=== PATIENT | female | born 1950 | race Caucasian/White ===

== ENCOUNTER → 2018-09-29 | Outpatient (CLI) | payer OTHER | END | disposition home or self-care (01) | LOC: RAH 16:56 | PROVIDERS: ATTEND Internal Medicine | DX: M25.551 Pain in right hip (principal) | CPT/HCPCS: 73502 ==

== ENCOUNTER → 2018-11-15 | Outpatient (CLI) | payer OTHER | END | disposition home or self-care (01) | LOC: RAH 14:19 | PROVIDERS: ATTEND Internal Medicine | DX: Z12.31 Encounter for screening mammogram for malignant neoplasm of breast (principal) | CPT/HCPCS: 77067 ==

== ENCOUNTER → 2019-08-09 | Outpatient (CLI) | payer OTHER | END | disposition home or self-care (01) | LOC: RAH 15:23 | PROVIDERS: ATTEND Pain Medicine Interventional Pain Medicine | DX: M47.22 Other spondylosis with radiculopathy, cervical region (principal); M48.02 Spinal stenosis, cervical region | CPT/HCPCS: 72040 ==

== ENCOUNTER 2019-08-19 15:52 | Observation (INO) | payer OTHER ==
[~2019-08-19] VITALS: Ht 160 cm; Wt 95.8 kg
[2019-08-19] MEDS ORDERED: ONDANSETRON HCL 4 MG/2 ML VIAL ONE (16:53)
[2019-08-19 17:01] LABS: BASOPHILS % (AUTO) 0.5 % (0.0-5.0); EOSINOPHILS % (AUTO) 1.8 % (0.0-8.0); HEMATOCRIT 43.6 % (36-48); LYMPHOCYTES % (AUTO) 21.2 % (21.0-51.0); MEAN CORPUSCULAR HEMOGLOBIN 28.8 pg (27.0-33.0); MEAN CORPUSCULAR HGB CONC 31.9 g/dL (32.0-36.0); MEAN CORPUSCULAR VOLUME 90.3 fL (79-99); MONOCYTES % (AUTO) 5.8 % (3.0-13.0); NEUTROPHILS % (AUTO) 70.4 % (40.0-77.0); PLATELET COUNT (AUTO) 238 K/uL (130-400); RED BLOOD CELL COUNT(AUTO) 4.83 MIL/uL (4.00-5.50); WHITE BLOOD COUNT (AUTO) 7.8 K/uL (4.8-10.8)
[2019-08-19 17:20] LABS: POTASSIUM 3.8 mmol/L (3.5-5.1)
[2019-08-19 17:24] LABS: ALBUMIN 3.4 g/dL (3.5-5.0); BILIRUBIN,TOTAL 0.6 mg/dL (0.2-1.0); TOTAL PROTEIN, SERUM 7.7 g/dL (6.0-8.3)
[2019-08-19 17:47] LABS: APPEARANCE,URINE Clear (CLEAR); BILIRUBIN,URINE Negative (NEGATIVE); COLOR,URINE Yellow (YELLOW); GLUCOSE, URINE (UA) Negative (NEGATIVE); KETONES,URINE Negative (NEGATIVE); LEUKOCYTE ESTERASE ,URINE Negative (NEGATIVE); NITRATE,URINE Negative (NEGATIVE); OCCULT BLOOD,URINE Negative (NEGATIVE); PROTEIN,URINE Negative (NEGATIVE)
[2019-08-19] MEDS ORDERED: SODIUM CHLORIDE 0.9% 1000ML 1,000 ML IV ONE ×2 (17:48→22:46)
[2019-08-19] MEDS ORDERED: IOHEXOL-350 75 ML VIAL IV ONE (18:06)
[2019-08-19] MEDS ORDERED: DEXTROSE 50%-WATER 50 ML DISP.SYRIN IV PRN (21:30)
[2019-08-19] MEDS ORDERED: MORPHINE SULFATE 2 MG/ML 1ML SYG IVP PRN (21:30)
[2019-08-19] MEDS ORDERED: GLUCAGON 1MG KIT 1 MG ML IM PRN (21:30)
[2019-08-19 23:05] VITALS: BP 168/90
[2019-08-20] MEDS: SODIUM CHLORIDE 0.9% 1000ML 1,000 ML IV SCH ×3 (00:46→21:01)
[2019-08-20] MEDS: ONDANSETRON HCL 4 MG/2 ML VIAL IV PRN ×3 (00:46→22:10)
[2019-08-20 03:19] VITALS: BP 109/66
[2019-08-20 05:36] LABS: BASOPHILS % (AUTO) 0.3 % (0.0-5.0); EOSINOPHILS % (AUTO) 2.3 % (0.0-8.0); HEMATOCRIT 37.9 % (36-48); LYMPHOCYTES % (AUTO) 29.8 % (21.0-51.0); MEAN CORPUSCULAR HEMOGLOBIN 28.5 pg (27.0-33.0); MEAN CORPUSCULAR HGB CONC 31.4 g/dL (32.0-36.0); MEAN CORPUSCULAR VOLUME 90.9 fL (79-99); MONOCYTES % (AUTO) 7.4 % (3.0-13.0); NEUTROPHILS % (AUTO) 60.1 % (40.0-77.0); PLATELET COUNT (AUTO) 200 K/uL (130-400); RED BLOOD CELL COUNT(AUTO) 4.17 MIL/uL (4.00-5.50); RED CELL DISTRIBUTION WIDTH 14.9 % (11.0-15.5); WHITE BLOOD COUNT (AUTO) 6.9 K/uL (4.8-10.8)
[2019-08-20 05:38] LABS: HEMOGLOBIN A1C 7.5 % (4.0-6.0)
[2019-08-20 05:46] LABS: CREATININE 1.1 mg/dL (0.5-1.5); POTASSIUM 3.9 mmol/L (3.5-5.1)
[2019-08-20] MEDS: INSULIN HUMULIN R 100 UNIT/ML 3ML SQ SCH ×5 (05:46→20:25)
[2019-08-20] MEDS ORDERED: BACL5TAB PO (06:59)
[2019-08-20] MEDS ORDERED: INSU10VI3 SQ ×2 (06:59)
[2019-08-20] MEDS ORDERED: CETI10TA57 PO (06:59)
[2019-08-20] MEDS ORDERED: GABA-531 PO (06:59)
[2019-08-20] MEDS ORDERED: DULO30CA52 PO (06:59)
[2019-08-20] MEDS ORDERED: ALLO100T PO (07:41)
[2019-08-20] MEDS ORDERED: MONT10TA21 PO (07:41)
[2019-08-20] MEDS ORDERED: ALBU8.5H8 IH (07:42)
[2019-08-20] MEDS ORDERED: GLIP5TAB11 PO (07:42)
[2019-08-20] MEDS ORDERED: ROSU10TA28 PO (07:42)
[2019-08-20] MEDS ORDERED: LISI40TA4 PO (07:42)
[2019-08-20] MEDS ORDERED: MELA5TAB14 PO (07:42)
[2019-08-20] MEDS ORDERED: FLUT16H NASAL (07:42)
[2019-08-20] MEDS ORDERED: PANT40TA25 PO (07:42)
[2019-08-20 08:16] VITALS: BP 131/71
[2019-08-20] MEDS: FAMOTIDINE/PF 20 MG/2 ML VIAL IV SCH ×2 (08:20→20:42)
[2019-08-20] MEDS ORDERED: FAMOTIDINE/PF 20 MG/2 ML VIAL IV SCH (09:00)
[2019-08-20 11:23] VITALS: BP 144/89
[2019-08-20] MEDS: LEVOFLOXACIN 500 MG/D5W 100 ML 100 ML IV SCH (14:18)
[2019-08-20] MEDS: GUAIFENESIN-DM 200/20 MG 10 ML PO SCH ×2 (14:18→17:16)
[2019-08-20] MEDS: METRONIDAZOLE 500MG/100ML BAG 100 ML IV SCH ×2 (15:31→21:05)
--- NOTE | 2019-08-20 16:15 | NUR ---
INITIAL MET W PATIENT FOR DC PLANNING. LIVES ALONE, INDP, HAS KENRICK, PROVIDER 23 HR/WK, GRAND DAUGHTER BRIANNE WILL PROVIDE TRANSPORT HOME- CM TO FOLLOW EXPECT DC IN 24 HRS
[2019-08-20 16:33] VITALS: BP 145/74
[2019-08-20 18:10] VITALS: BP 126/73
[2019-08-20] MEDS ORDERED: ENOXAPARIN SODIUM 30 MG/0.3 ML SQ SCH (18:30)
--- NOTE | 2019-08-20 19:30 | NUR ---
PM Assessment Received pt with no family at the bedside, NS at 75cc/hr infusing well, routine assessment done, plan of care discuss, made aware that I spoke with MARK Pedroza who is currently reviewing all her home meds as pt verbalizes concerns that her PCP stated that she can't be missing any of her home medications. Assurance given to the pt that home medications will be resumed tonight & I am only waiting for it at this time. PT with some concern questions which is all addressed.
[2019-08-20] MEDS ORDERED: BACLOFEN 10 MG TABLET PO PRN (19:45)
[2019-08-20] MEDS: GABAPENTIN 300 MG CAPSULE PO SCH (20:40)
[2019-08-20] MEDS: ALLOPURINOL 100 MG TABLET PO SCH (20:41)
[2019-08-20] MEDS ORDERED: CETIRIZINE HCL 5 MG TABLET PO SCH (21:00)
[2019-08-20] MEDS ORDERED: ATORVASTATIN CALCIUM 20 MG TABLET PO SCH (21:00)
[2019-08-20] MEDS ORDERED: **HM**(Melatonin 5 MG PO SCH (21:00)
[2019-08-21] VITALS: BP 133/76
[2019-08-21 05:12] LABS: BASOPHILS % (AUTO) 0.3 % (0.0-5.0); EOSINOPHILS % (AUTO) 2.6 % (0.0-8.0); LYMPHOCYTES % (AUTO) 29.6 % (21.0-51.0); MEAN CORPUSCULAR HEMOGLOBIN 28.4 pg (27.0-33.0); MEAN CORPUSCULAR HGB CONC 31.4 g/dL (32.0-36.0); MEAN CORPUSCULAR VOLUME 90.4 fL (79-99); MONOCYTES % (AUTO) 9.5 % (3.0-13.0); NEUTROPHILS % (AUTO) 57.7 % (40.0-77.0); PLATELET COUNT (AUTO) 175 K/uL (130-400); RED BLOOD CELL COUNT(AUTO) 3.87 MIL/uL (4.00-5.50); WHITE BLOOD COUNT (AUTO) 6.2 K/uL (4.8-10.8)
[2019-08-21 05:24] LABS: CREATININE 1.1 mg/dL (0.5-1.5); POTASSIUM 3.7 mmol/L (3.5-5.1)
[2019-08-21 06:00] VITALS: BP 153/81
[2019-08-21] MEDS: GUAIFENESIN-DM 200/20 MG 10 ML PO SCH ×3 (06:00→11:31)
[2019-08-21] MEDS: INSULIN HUMULIN R 100 UNIT/ML 3ML SQ SCH ×2 (06:11→11:30)
[2019-08-21] MEDS: METRONIDAZOLE 500MG/100ML BAG 100 ML IV SCH ×2 (06:13→13:12)
[2019-08-21 08:06] VITALS: BP 150/84
[2019-08-21] MEDS: FAMOTIDINE/PF 20 MG/2 ML VIAL IV SCH (08:43)
[2019-08-21] MEDS: ALLOPURINOL 100 MG TABLET PO SCH (08:44)
[2019-08-21] MEDS: GABAPENTIN 300 MG CAPSULE PO SCH ×2 (08:45→13:12)
[2019-08-21] MEDS ORDERED: LISINOPRIL 40 MG TABLET PO SCH (09:00)
[2019-08-21] MEDS ORDERED: MONTELUKAST SODIUM 10 MG TAB PO SCH (09:00)
[2019-08-21] MEDS ORDERED: ENOXAPARIN SODIUM 30 MG/0.3 ML SQ SCH (09:00)
[2019-08-21] MEDS ORDERED: DULOXETINE HCL 30 MG CAP PO SCH (09:00)
[2019-08-21] MEDS ORDERED: PANTOPRAZOLE SODIUM 40 MG TABLET.DR PO SCH (09:00)
[2019-08-21] MEDS ORDERED: LEVO500T2 PO (10:30)
[2019-08-21] MEDS ORDERED: METR500T PO (10:30)
[2019-08-21] MEDS ORDERED: ONDA-104 PO (10:39)
[2019-08-21 10:57] VITALS: BP 162/91
[2019-08-21] MEDS: LEVOFLOXACIN 500 MG/D5W 100 ML 100 ML IV SCH (11:29)
[2019-08-21] MEDS: ONDANSETRON HCL 4 MG/2 ML VIAL IV PRN (13:12)
--- NOTE | 2019-08-21 15:06 | NUR ---
DISCHARGE INSTRUCTIONS GIVEN TO PATIENT, MADE AWARE OF NEW ORDERS FOR LEVAQUIN, FLAGYL, AND ZOFRAN. INSTRUCTED TO FOLLOW UP WITH PCP DR. STARKS IN 2-3 DAYS. PATIENT AT THIS TIME DENIES PAIN OR NAUSEA. TOLERATED LUNCH SOFT DIET WELL. IV REMOVED. PATIENT WAITING FOR SP[facility] TO ARRIVE TO TRANSPORT HOME.
== END 2019-08-21 15:30 | disposition home or self-care (01) ==
LOC: EDH 15:52 → INTOOBSV 21:16 → EDHIP 21:16 → 4BH 22:36
PROVIDERS: ADMIT Internal Medicine; ATTEND Internal Medicine
DX: R11.2 Nausea with vomiting, unspecified (principal); E66.01 Morbid (severe) obesity due to excess calories; I10 Essential (primary) hypertension; E11.9 Type 2 diabetes mellitus without complications; Z68.37 Body mass index [BMI] 37.0-37.9, adult
CPT/HCPCS: 36415 ×3; 74177; 80048 ×2; 80053; 81003; 82150; 82948 ×7; 83036; 83690; 84484; 85025 ×3; 86677; 93005; 96361; 96365; 96366 ×2; 96367; 96372 ×2; 96375; 96376 ×2; 99285; G0378 ×4; J1650 ×2; J1956 ×2; J2405 ×5; J3490 ×7; J7030 ×3; Q9967

== ENCOUNTER → 2020-11-16 | Outpatient (CLI) | payer OTHER ==
[~2020-11-16] MED LIST: ALBU8.5H8 IH; ALLO100T PO; BACL5TAB PO; CETI10TA57 PO; DULO30CA52 PO; FLUT16H NASAL; GABA-531 PO; GLIP5TAB11 PO; INSU10VI3 SQ; LEVO500T2 PO; LISI40TA9 PO; MELA5TAB14 PO; METR500T PO; MONT10TA21 PO; ONDA-104 PO; PANT40TA54 PO; ROSU10TA28 PO
== END | disposition home or self-care (01) ==
LOC: RAH 14:45
PROVIDERS: ATTEND Internal Medicine
DX: Z12.31 Encounter for screening mammogram for malignant neoplasm of breast (principal)
CPT/HCPCS: 77067

== ENCOUNTER → 2020-12-14 | Outpatient (CLI) | payer OTHER | END | disposition home or self-care (01) | LOC: RAH 07:21 | PROVIDERS: ATTEND Internal Medicine | DX: N60.01 Solitary cyst of right breast (principal) | CPT/HCPCS: 76641; 77065 ==

== ENCOUNTER → 2021-04-02 | Outpatient (CLI) | payer OTHER | END | disposition home or self-care (01) | LOC: RAH 13:58 | PROVIDERS: ATTEND Orthopaedic Surgery | DX: M75.121 Complete rotator cuff tear or rupture of right shoulder, not specified as traumatic (principal) | CPT/HCPCS: 73221 ==

== ENCOUNTER → 2021-08-06 | Outpatient (CLI) | payer OTHER | END | disposition home or self-care (01) | LOC: RAH 13:43 | PROVIDERS: ATTEND Internal Medicine | DX: M79.672 Pain in left foot (principal) | CPT/HCPCS: 73600; 73620 ==

== ENCOUNTER → 2021-09-03 | Outpatient (CLI) | payer OTHER ==
[~2021-09-03] MED LIST changes: +LIDOCAINE HCL MPF 1% 5ML VIAL ONE
[2021-09-03 08:41] LABS: INR 1.06 (0.85-1.15); PROTHROMBIN TIME 11.5 SEC (9.6-11.6)
[2021-09-03 08:42] LABS: PARTIAL THROMBOPLASTIN TIME 31.6 SEC (26.3-35.5)
== END | disposition home or self-care (01) ==
LOC: RAH 07:50
PROVIDERS: ATTEND Internal Medicine
DX: N63.41 Unspecified lump in right breast, subareolar (principal); R92.8 Other abnormal and inconclusive findings on diagnostic imaging of breast; Z79.01 Long term (current) use of anticoagulants
CPT/HCPCS: 19083; 36415; 85610; 85730; A4215 ×3; J3490

== ENCOUNTER → 2021-10-24 | Outpatient (CLI) | payer OTHER ==
[~2021-10-24] MED LIST changes: -LIDOCAINE HCL MPF 1% 5ML VIAL ONE
== END | disposition home or self-care (01) ==
LOC: RAH 12:08
PROVIDERS: ATTEND Internal Medicine
DX: Z01.818 Encounter for other preprocedural examination (principal)
CPT/HCPCS: 71046

== ENCOUNTER → 2022-01-13 | Outpatient (CLI) | payer OTHER | END | disposition home or self-care (01) | LOC: RAH 09:09 | PROVIDERS: ATTEND Podiatrist | DX: M25.375 Other instability, left foot (principal); M66.272 Spontaneous rupture of extensor tendons, left ankle and foot | CPT/HCPCS: 73630 ==

== ENCOUNTER → 2022-05-19 | Outpatient (CLI) | payer OTHER | END | disposition home or self-care (01) | LOC: RAH 08:21 | PROVIDERS: ATTEND Orthopaedic Surgery | DX: M19.011 Primary osteoarthritis, right shoulder (principal); I70.0 Atherosclerosis of aorta; M47.815 Spondylosis without myelopathy or radiculopathy, thoracolumbar region; M41.57 Other secondary scoliosis, lumbosacral region; M89.011 Algoneurodystrophy, right shoulder; M75.101 Unspecified rotator cuff tear or rupture of right shoulder, not specified as traumatic | CPT/HCPCS: 71046; 73221 ==

== ENCOUNTER 2022-07-17 07:21 | Day surgery (SDC) | payer OTHER ==
[2022-07-16 10:35] VITALS: BP 183/90
[2022-07-16 10:44] LABS: BASOPHILS % (AUTO) 0.9 % (0.0-5.0); EOSINOPHILS % (AUTO) 1.9 % (0.0-8.0); HEMATOCRIT 38.3 % (36-48); LYMPHOCYTES % (AUTO) 26.8 % (21.0-51.0); MEAN CORPUSCULAR HEMOGLOBIN 26.8 pg (27.0-33.0); MEAN CORPUSCULAR HGB CONC 31.6 g/dL (32.0-36.0); MEAN CORPUSCULAR VOLUME 84.7 fL (79-99); MONOCYTES % (AUTO) 4.4 % (3.0-13.0); NEUTROPHILS % (AUTO) 65.6 % (40.0-77.0); PLATELET COUNT (AUTO) 228 K/uL (130-400); RED BLOOD CELL COUNT(AUTO) 4.52 MIL/uL (4.00-5.50); RED CELL DISTRIBUTION WIDTH 17.7 % (11.0-15.5); WHITE BLOOD COUNT (AUTO) 7.4 K/uL (4.8-10.8)
[2022-07-16 10:51] LABS: POTASSIUM 3.9 mmol/L (3.5-5.1)
[2022-07-17] VITALS (24 sets, daily range): BP systolic 135–173; BP diastolic 51–102
[~2022-07-17] VITALS: Ht 167.6 cm; Wt 90.7 kg
[~2022-07-17 07:21] MED LIST changes: -BACL5TAB PO; +BIOT10004 PO; +CEFAZOLIN SODIUM 2 GM VIAL IVPB SCH; -DULO30CA52 PO; +DULO60CA64 PO; +GLUC100019 PO; +LACTATED RINGERS 1000ML 1,000 ML IV SCH; -LEVO500T2 PO; -MELA5TAB14 PO; +METF-444 PO; -METR500T PO; +MULT-1367 PO; -ONDA-104 PO; +UBID100C45 PO
[2022-07-17] MEDS ORDERED: 0.9%NACL 1000ML 1,000 ML IV ONE (07:37)
[2022-07-17] MEDS ORDERED: ROPIVACAINE 0.5% 5MG/ML 30ML IJ ONE (09:08)
[2022-07-17] MEDS ORDERED: FAMOTIDINE 20MG VIAL IV ONE (11:07)
[2022-07-17] MEDS ORDERED: PROPOFOL 10 MG/ML 20ML VIAL IV ONE (11:11)
[2022-07-17] MEDS ORDERED: LIDOCAINE PF 100MG/5ML (2%) SYRINGE 5ML ONE (11:11)
[2022-07-17] MEDS ORDERED: GLYCOPYRROLATE 1 MG/5 ML SYRINGE ONE (11:11)
[2022-07-17] MEDS ORDERED: MIDAZOLAM HCL 1 MG/ML 2ML VIAL ONE (11:12)
[2022-07-17] MEDS ORDERED: FENTANYL CITRATE PF 50 MCG/1 ML 2ML VIAL ONE (11:12)
[2022-07-17] MEDS ORDERED: EPHEDRINE SULFATE 50 MG/ML AMPULE ONE (12:22)
[2022-07-17] MEDS ORDERED: ONDANSETRON 4MG INJ ONE (12:27)
[2022-07-17] MEDS ORDERED: NEOSTIGMINE 5MG/5ML SYR IV ONE (13:10)
[2022-07-17] MEDS ORDERED: HYDRALAZINE 20MG/ML VIAL ONE (14:29)
== END 2022-07-17 16:50 | disposition home or self-care (01) ==
LOC: DAH 07:21
PROVIDERS: ATTEND Orthopaedic Surgery
DX: M75.111 Incomplete rotator cuff tear or rupture of right shoulder, not specified as traumatic (principal); Z20.822 Contact with and (suspected) exposure to COVID-19; M75.01 Adhesive capsulitis of right shoulder; I44.7 Left bundle-branch block, unspecified; I10 Essential (primary) hypertension; K21.9 Gastro-esophageal reflux disease without esophagitis; E78.5 Hyperlipidemia, unspecified; E11.9 Type 2 diabetes mellitus without complications; Z90.49 Acquired absence of other specified parts of digestive tract; Z90.710 Acquired absence of both cervix and uterus; Z98.49 Cataract extraction status, unspecified eye; Z79.899 Other long term (current) drug therapy; Z98.890 Other specified postprocedural states
CPT/HCPCS: 80048; 85025; 87426; 36415; 93005; 29827; 64415; 82948 ×2; A6260; A4663; A6207; J7030 ×2; A4565; J7120; J3490 ×3; J3010; J2710; J2001; J0360; J2250; J2704; J2405; J2795; J0690; A6204; A4649 ×3; C1713 ×4; C1769; A4215; A4223; A4222; A4221; A4600

== ENCOUNTER → 2022-11-06 | Outpatient (CLI) | payer OTHER ==
[~2022-11-06] MED LIST changes: -CEFAZOLIN SODIUM 2 GM VIAL IVPB SCH; -LACTATED RINGERS 1000ML 1,000 ML IV SCH; +MONT-47 PO; -MONT10TA21 PO
== END | disposition home or self-care (01) ==
LOC: RAH 13:02
PROVIDERS: ATTEND Internal Medicine
DX: N60.01 Solitary cyst of right breast (principal); R92.8 Other abnormal and inconclusive findings on diagnostic imaging of breast
CPT/HCPCS: 76641; 77066

== ENCOUNTER → 2023-09-10 | Outpatient (CLI) | payer OTHER ==
[~2023-09-10] MED LIST changes: -GLIP5TAB11 PO; +GLIP5TAB15 PO
== END | disposition home or self-care (01) ==
LOC: RAH 15:00
PROVIDERS: ATTEND Internal Medicine
DX: Z12.31 Encounter for screening mammogram for malignant neoplasm of breast (principal); N60.02 Solitary cyst of left breast; R92.322 Mammographic fibroglandular density, left breast; N64.52 Nipple discharge
CPT/HCPCS: 76641; 77066

== ENCOUNTER → 2023-12-16 | Outpatient (CLI) | payer OTHER ==
[~2023-12-16] MED LIST changes: -ROSU10TA28 PO; +ROSU10TA72 PO
== END | disposition home or self-care (01) ==
LOC: RAH 13:34
PROVIDERS: ATTEND Podiatrist
DX: M66.371 Spontaneous rupture of flexor tendons, right ankle and foot (principal); M76.821 Posterior tibial tendinitis, right leg; M65.871 Other synovitis and tenosynovitis, right ankle and foot
CPT/HCPCS: 73721

== ENCOUNTER → 2024-08-17 | Outpatient (CLI) | payer OTHER ==
--- NOTE | 2024-08-18 12:00 | HMCIMG ---
PROCEDURE: MAMMO DX BILATERAL, US BREAST COMPLETE UNILATERAL HISTORY: Nipple discharge COMPARISON: 09/10/2023 TECHNIQUE: Bilateral digital diagnostic mammogram with CAD was performed. No additional views were obtained. Left breast ultrasound study was performed. FINDINGS: The breasts are heterogeneously dense, which may obscure small masses. Nodular densities are seen in both breasts. Left breast ultrasound study shows multiple left breast cysts with the largest at 8:00 measuring 6 x 6 x 8 mm. Prominent ducts are seen. Left axillary lymph node is seen measuring 16 mm. There is no evidence of a dominant mass, or suspicious microcalcification. There appears be bilateral nipple inversion. IMPRESSION: 1. Multiple left breast cysts with the largest measuring 6 x 8 mm at 8:00. Prominent left breast ducts. BI-RADS: CATEGORY 2: BENIGN FINDINGS Recommend monthly self breast exam as well as annual clinical examination. A negative x-ray should not delay biopsy if a dominant or clinically suspicious mass is present, since 8-10% of cancers are not identified by mammography. Dense breasts particularly, may obscure an underlying neoplasm. Some of these may be detected clinically and therefore, clinical examination is an essential part of breast evaluation.
== END | disposition home or self-care (01) ==
LOC: RAH 13:33
PROVIDERS: ATTEND Internal Medicine
DX: N60.02 Solitary cyst of left breast (principal); R92.333 Mammographic heterogeneous density, bilateral breasts; N64.52 Nipple discharge; N64.4 Mastodynia; N64.89 Other specified disorders of breast
CPT/HCPCS: 76641; 77066

== ENCOUNTER → 2025-02-14 | Outpatient (CLI) | payer OTHER ==
[~2025-02-14] MED LIST changes: +LISI40TA15 PO; -LISI40TA9 PO
--- NOTE | 2025-02-15 07:22 | HMCIMG ---
EXAM: CR Abdomen, 1 view. CLINICAL HISTORY: Acute gastritis. COMPARISON: Prior CT abdomen dated 20 August 2019. FINDINGS: Nonobstructed nonspecific bowel gas pattern. No free air is evident. No abnormal calcification. No aggressive appearing osseous lesion. Mild osteopenia. Levoscoliosis of the lumbar spine. Degenerative lateral syndesmophyte in the lumbar spine from L2-L3, through L5-S1 level with multilevel degenerative facet arthropathy. IMPRESSION: No acute process. Nonobstructive bowel gas pattern. No abdominal calcification. /[place]
== END | disposition home or self-care (01) ==
LOC: RAH 11:40
PROVIDERS: ATTEND Internal Medicine
DX: R14.0 Abdominal distension (gaseous) (principal); K52.9 Noninfective gastroenteritis and colitis, unspecified; M85.88 Other specified disorders of bone density and structure, other site; M41.86 Other forms of scoliosis, lumbar region; M47.817 Spondylosis without myelopathy or radiculopathy, lumbosacral region
CPT/HCPCS: 74018

== ENCOUNTER → 2025-03-22 | Outpatient (CLI) | payer OTHER ==
[~2025-03-22] MED LIST changes: -ROSU10TA72 PO; +ROSU10TA98 PO
--- NOTE | 2025-03-22 15:26 | HMCIMG ---
EXAM: CR Chest, 2 View. CLINICAL HISTORY: PRE-OP COMPARISON: May 19, 2022 FINDINGS: LUNGS: There is no mass, infiltrate, or acute pulmonary abnormality. PLEURAL SPACES: No pleural effusion or pneumothorax. MEDIASTINUM: The cardiomediastinal silhouette is within normal limits. BONES: No aggressive appearing osseous lesion seen. IMPRESSION: No acute cardiopulmonary pathology is evident. /[place]
== END | disposition home or self-care (01) ==
LOC: RAH 13:41
PROVIDERS: ATTEND Internal Medicine
DX: Z01.818 Encounter for other preprocedural examination (principal); M66.361 Spontaneous rupture of flexor tendons, right lower leg
CPT/HCPCS: 71046